=== PATIENT | female | born 1965 | race Caucasian/White ===

== ENCOUNTER → 2020-09-18 09:03 | Outpatient (BNVA) | payer OTHER, SELFPAY | PROVIDERS: PCP Hospitalist; Visit Provider Internal Medicine | DX: S61.212A Laceration without foreign body of right middle finger without damage to nail, initial encounter (principal); S61.214A Laceration without foreign body of right ring finger without damage to nail, initial encounter; W26.8XXA Contact with other sharp object(s), not elsewhere classified, initial encounter | CPT/HCPCS: 12001; 99203 ==

== ENCOUNTER → 2020-09-25 09:30 | Outpatient (BNVA) | payer OTHER, SELFPAY | PROVIDERS: PCP Hospitalist; Visit Provider Physician Assistant | DX: S61.212D Laceration without foreign body of right middle finger without damage to nail, subsequent encounter (principal); S61.214D Laceration without foreign body of right ring finger without damage to nail, subsequent encounter; X58.XXXD Exposure to other specified factors, subsequent encounter; Z48.02 Encounter for removal of sutures | CPT/HCPCS: 99212; 99213 ==

== ENCOUNTER 2025-09-26 14:32 | Outpatient (AMB) | payer OTHER, SELFPAY ==
--- NOTE | 2025-09-26 14:37 | A.PHYSOV ---
Intake Visit Reasons: Follow up after injection 08/08/25 Intake Note: Patient is a 60 year old male here for follow up of 08/08/25 right C3-C4,C4-C5 facet injection. Allergies No Known Allergies Allergy (Verified 09/26/25 14:38) HPI Comments Details: History of Present Illness The patient is a 60 year old individual presenting for follow-up of persistent neck pain. A recent injection provided no relief from the pain. The primary complaint is right-sided neck pain that radiates up into the head, causing headaches. The pain is exacerbated by lifting the head, head turning, and lifting objects. The patient has a history of tingling in the arm and wrist, with the last episode occurring one to two weeks ago. The patient manages the pain with ibuprofen and acetaminophen, primarily taken at night to improve sleep. The patient has previously completed physical therapy. Patient has a pain level today of 7/10. She would like to consider further treatment options including injection. Patient would also like MRI of the lumbar spine as she has severe lumbar radiculitis and has failed conservative treatment by completing physician directed home exercise plan for over 6 weeks. The patient has no history of low back surgery and is not claustrophobic. The patient reports having a metal implant but has undergone MRIs in the past without issue. Pain Description - Onset/Timing: Chronic, with fluctuations in intensity. - Quality/Character: Pain described as originating in the neck and going up into the head, causing headaches and a feeling of pressure. - Location/Radiation: Primarily right-sided neck pain that radiates into the head. - Severity: Pain rated as 4/10 at the time of the visit, but it can become severe enough to cause tears. - Exacerbating Factors: Pain worsens with activities such as lifting the head, turning the head, and lifting objects. - Associated Symptoms: Headache and a history of tingling in the arm and wrist. - Functional Interference: Pain interferes with sleep. Procedure: Right C3-4, C4-5 facet injection no relief 08/08/2025 [facility] Surgical History Hx of tonsillectomy H/O: knee surgery Social History Alcohol intake: current Alcohol intake frequency: holidays/special occasions only Patient Tobacco Use Status: Never used Tobacco Use of substances other than those prescribed or required for medical reasons: No Review of Systems Narrative Review of Systems - Musculoskeletal: Reports right-sided neck pain and tenderness upon touch. - Reports low back pain localized to the waist/hip area. - Neurological: Reports headaches and a sensation of pressure associated with neck pain. - Reports a history of tingling in the arm and wrist which occurred 1-2 weeks ago. - Denies current tingling in the arm. - Denies claustrophobia. - Psychiatric: Reports poor sleep quality due to pain. Physical Exam Exam Exam: Physical Exam Cervical Spine: Examination of the cervical spine, there is no visible swelling or deformity. She is tender to the right upper trapezius. She has full range of motion of her cervical spine with pain. Special Tests: Axial Compression test: Negative Spurlings test: Negative Lhermitte's sign is Negative Upper Extremities: Full range of motion bilateral upper extremities. Equal labor mediator strength bilaterally. Neuro: Sensation: Intact to upper extremities bilateral to light touch Strength C5 (Elbow Flexion): 5/5 on the left and 5/5 on the right. C6 (Elbow Ext): 5/5 on the left and 5/5 on the right. C7 (Elbow Ext): 5/5 on the left and 5/5 on the right. C8 (Finger Flex): 5/5 on the left and 5/5 on the right. T1 (Finger Abd/Add): 5/5 on the left and 5/5 on the right. DTR: C5 (Biceps): Left 2 Right 2 C6 (Brachioradialis): Left 2 Right 2 C7 (Triceps): Left 2 Right 2 Sanabria sign: Negative No pathologic clonus. No involuntary movement. Lumbar Spine: Examination of her lumbar spine, there is no visible swelling or deformity. She is tender to lower lumbar facets. She is otherwise nontender. Full range of motion of the lumbar spine. She does have an increase in pain with facet loading. Special Tests: Lhermittes sign was negative Heel Toe walk is normal Left straight leg raise: Negative Right straight leg raise: Negative Special tests Jonas test is negative Ganslen's test is negative SI Joint compression test negative Gabriel test negative Piriformis stretch is negative Lower Extremities: Full range of motion bilateral lower extremities. No calf pain or edema. Neuro: Sensation: Intact to lower extremities bilaterally Strength L2 (Psoas): 5/5 on the left and 5/5 on the right. L3 (Quads): 5/5 on the left and 5/5 on the right. L4 (Ant tibialis): 5/5 on the left and 5/5 on the right. L5 (EHL) 5/5 on the left and 5/5 on the right. S1 (Gastroc): 5/5 on the left and 5/5 on the right. DTR L4: (Patellar) Left 2 Right 2 S1: (Achilles) Left 2 Right 2 Babinski Downgoing No pathologic clonus. No involuntary movement. Assessment & Plan Assessment & Plan (1) Cervicalgia: Code(s): M54.2 - Cervicalgia Category: Medical (2) Cervical radiculopathy: Code(s): M54.12 - Radiculopathy, cervical region Category: Medical (3) Lumbar radiculopathy: Code(s): M54.16 - Radiculopathy, lumbar region Category: Medical Plan Pain Management - Affect: Pain has been severe enough to cause the patient to be in tears and it impacts sleep. - Analgesia: The patient reports taking ibuprofen and acetaminophen at night. - The patient declined stronger analgesics such as Percocet, Vicodin, or tramadol. - A muscle relaxer was discussed for nighttime use. - Adverse Effects: Not discussed. - Activities of Daily Living: Pain interferes with sleep and is worsened by head movements. - Aberrant Drug-Related Behaviors: None noted; the patient expressed a desire to limit ibuprofen use. Plan Patient was informed and verbally consented to the use of an ambient scribe for clinic note documentation during this visit. 1. Cervicalgia With Cervicogenic Headache The patient has persistent right-sided neck pain and associated headaches, with no relief from a previous facet joint injection aimed at treating arthritis. While MRI findings show right C5 lateral recess narrowing and possible right C7 nerve root compression, the clinical presentation is more consistent with axial neck pain rather than radiculopathy. The plan is to now target these potentially irritated nerve roots. Plan to proceed with a right C5 and C7 transforaminal epidural steroid injection. The procedure will be performed under sedation in a hospital setting. The patient will continue using [id number] ibuprofen and acetaminophen for pain management and has declined stronger medications. 2. Low Back Pain The patient brought up concerns for low back pain and requested further imaging. An MRI of the lumbar spine will be ordered and scheduled at [facility] for continuity of care. Patient has failed conservative treatment by completing 6 week physician directed home exercise plan without relief. The patient was advised against routine use of a back brace to prevent increased stiffness and weakness, recommending it only for short-term use during episodes of severe pain. The patient was counseled on using ice for pain/inflammation and heat for stiffness. Discussion Notes I discussed with the patient that the previous injection for arthritis was not effective. I reviewed the cervical MRI findings, noting the presence of right-sided C5 and C7 nerve abutment/compression, and explained that while this typically causes arm pain, we would now target these nerves as the next step. The plan is to schedule a right C5 and C7 transforaminal injection to be performed under sedation at the hospital. We discussed pain medication options, and the patient expressed a preference to continue with [id number] ibuprofen and acetaminophen, declining a prescription for stronger pain relievers, gabapentin, or a muscle relaxer at this time. I also agreed to order an MRI of the patient's low back for further evaluation, which will be done at a [facility] facility for integrated EMR access. We reviewed home care, including the rationale for using ice for inflammation versus heat for stiffness and the appropriate, limited use of a back brace. Patient Instructions - Continue taking ibuprofen and acetaminophen as needed for pain. - Our office will be in touch to schedule a right-sided C5 and C7 neck injection, which will be performed at the hospital with Dr. Vaca. - An order has been placed for an MRI of your low back to be done at [facility]. - For pain and swelling, use ice. - For muscle stiffness, you may use heat, but be aware it can sometimes increase pain afterward. - Avoid using a back brace continuously. - You should only use it for a few days at a time if you are having severe pain. Orders: Orders MR lumbar spine wo con Today M51.16 - Intervertebral disc disorders with radiculopathy, lumbar region Referrals Physiatry Procedure Notification M54.12 - Radiculopathy, cervical region Coding Level of Care Code Tele Est Pt Level 4 (08381) Diagnoses Cervicalgia M54.2 Cervical radiculopathy M54.12 Lumbar radiculopathy M54.16
--- OUTSIDE RECORDS SUMMARY | 2025-09-26 16:28 | XMS_ITS | Clinical Summary ---
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 Active acetaminophen (TYLENOL) 325 mg tablet Take by mouth every 6 (six) hours if needed for mild pain. Active Active Problems Problem Noted Date Diagnosed Date IBS (irritable bowel syndrome) 03/09/2024 Encounters Date Type Department Care Team Description 08/08/2025 2:02 PM EDT Anesthesia Event [facility] Pain Management [address] [place] [phone] Chad Moreno MD 08/08/2025 1:52 PM EDT - 08/08/2025 11:59 PM EDT Hospital Encounter [facility] Xray [address] [place] [phone] Pain Discharge Disposition: Home or Self Care 08/08/2025 12:59 PM EDT - 08/08/2025 11:59 PM EDT Hospital Encounter [facility] Pain Management [address] [place] [phone] Rich Lewis DO Saliga, Jesse L, MD Swanson, Mona, CRNA Cervicalgia Discharge Disposition: Home or Self Care from Last 3 Months Immunizations Immunization Administration Dates Next Due Influenza Quadravalent, MDCK , 0.5ml, preservative free (Flucelvax) 6mo and older 09/24/2021 Influenza trivalent, 0.5mL, preservative free (Fluarix; FluLaval; Fluzone) ages 6mo and older (Afluria) 3 years and older 07/20/2022,08/10/2020 Moderna Covid-19 Bivalent, O riginal + Ba.1 (Non-US Tradename Spikevax Bivalent) 07/20/2022 Tdap Tetanus diptheria acell ular pertussis (Boostrix; Adacel) 7yo and older 09/18/2020 Surgical History Surgery Date Site/Laterality Comments FOOT SURGERY Right PROCEDURE: HISTORICAL FOOT SURGERY; COMMENT: bunionectomy KNEE SURGERY Right PROCEDURE: HISTORICAL KNEE SURGERY; COMMENT: meniscus repair LEG SURGERY PROCEDURE: HISTORICAL LEG SURGERY; COMMENT: laser vein ablation Medical History Medical History Date Comments Chronic pain disorder Family History Medical History Relation Name Comments Diabetes Father Diabetes Mother Diabetes Sister 1 Diabetes Sister 2 Relation Name Status Comments Father Mother Sister 1 Sister 2 Alive Social History Tobacco Use Types Packs/Day Years Used Date Smoking Tobacco: Former Cigarettes 0.5 21.9 S tarted: 2003 Smokeless Tobacco: Never Tobacco Cessation:Counseling Given: Not Answered Alcohol Use Standard Drinks/Week Comments Yes 0 (1 standard drink = 0.6 oz pur e alcohol) OCCASIONALLY Housing Instability Answer Date Recorde d Are you worried that in the next 2 months you may not have stable housing? No 01/09/2025 Food Access & Nutrition Answer Date Rec orded Do you have access to a vari ety of food including fruits and vegetables? Yes 01/09/2025 Access to Healthcare Answer Date Record ed Within the last 3 months, ho w many times did you visit the emergency department for your medical care? 0 01/09/2025 Health Literacy Answer Date Recorded How often do you need to hav e someone help you when you read instructions, pamphlets, or other written material from your doctor or pharmacy? Never 01/09/2025 Caregiver: How often do you need to have someone help you when you read instructions, pamphlets, or other written material from your doctor or pharmacy? Not on file 01/09/2025 Financial Risk Answer Date Recorded How hard is it for you to pa y for the very basics like food, housing, medical care, and air conditioning / heating? Not very hard 01/09/2025 Transportation Answer Date Recorded Has the lack of transportati on kept you from meetings, work, or from getting things needed for daily living? No Has the lack of transportati on kept you from medical appointments or from getting medications? No 01/09/2025 Social Isolation Answer Date Recorded How often do you feel lonely or isolated from th ose around you? Never 01/09/2025 Food Risk Answer Date Recorded Within the past 12 months we worried whether our food would run out before we got money to buy more. Never true 01/09/2025 Within the past 12 months th e food we bought just didn't last and we didn't have money to get more. Never true 01/09/2025 Dependent Care Answer Date Recorded Do you need help finding or paying for care for your loved ones. For example, child guidance counselor or elderly care for an older adult? No 01/09/2025 Living Situation Answer Date Recorded What is your living situation? Unrecognized valu e 01/09/2025 Interpersonal Safety Answer Date Record ed Physical Abuse Unrecognized value 08/08/2025 Verbal Abuse Unrecognized value 08/08/2025 Comments No Sex and Gender Information Value Date Recorded Sex Assigned at Not on file Legal Sex Female 11:55 PM EST Gender Identity Not on file Sexual Orientation Not on file Obstetrics History Last Filed Vital Signs Vital Sign Reading Time Taken Comments Blood Pressure 117/76 08/08/2025 2:42 PM EDT Pulse 76 08/08/2025 2:42 PM EDT Temperature 36.6 C (97.9 F) 08/08/2025 2:21 PM EDT Respiratory Rate 16 08/08/2025 2:42 PM EDT Oxygen Saturation 100% 08/08/2025 2:42 PM EDT Inhaled Oxygen Concentration - - Weight 68.9 kg (152 lb) 08/03/2025 8:00 AM EDT Height 162.6 cm (5' 4 ) 08/03/2025 8:00 AM EDT Body Mass Index 26.09 08/03/2025 8:00 AM EDT Plan of Treatment Health Maintenance Due Date Last Done Comments Breast Cancer Screening 1967 Colorectal Cancer Screening: Colonoscopy 1967 Hepatitis B Vaccines (1 of 3 - 19+ 3-dose series) 1986 Cervical Cancer Screening: Pap Smear 1988 Pneumococcal Vaccine: 50+ Years (1 of 1 - PCV) 2017 Zoster Vaccines (1 of 2) 2017 HIV Screening 09/28/2022 Hepatitis C Screening 09/28/2022 COVID-19 Vaccine ( - season) 2025 12/21/2023, 11/20/2023, 07/20/2022, Additional history exists Influenza Vaccine (#1) 2025 , 07/20/2022, 09/24/2021, Additional history exists Social Influencers of Health Screening 01/09/2026 01/09/2025 Cholesterol Screening (Lipid Panel) 06/28/2030 06/28/2025, 03/09/2024, 03/09/2024 DTaP,Tdap,and Td Vaccines (3 - Td or Tdap) 09/18/2030 09/18/2020, 04/25/2006 RSV Immunization Adult Patients (1 - 1-dose 75+ series) 2042 Depression Screening Completed 01/09/2025 HIB Vaccines Aged Out No longer eligi ble based on patient's age to complete this topic HPV Vaccines Aged Out No longer eligi ble based on patient's age to complete this topic Hepatitis A Vaccines Aged Out No long er eligible based on patient's age to complete this topic IPV Vaccines Aged Out No longer eligi ble based on patient's age to complete this topic MMR Vaccines Aged Out No longer eligi ble based on patient's age to complete this topic Meningococcal ACWY Vaccine Aged Out N o longer eligible based on patient's age to complete this topic Meningococcal B Vaccine Aged Out No l onger eligible based on patient's age to complete this topic RSV Immunization Patients Under 20 months Aged Out No longer eligible based on patient's age to complete this topic Varicella Vaccines Aged Out No longer eligible based on patient's age to complete this topic Procedures Procedure Name Priority Date/Time Associated Diagnosis Comments CBC WITH AUTO DIFFERENTIAL Routine 06/28/2025 7:42 AM EDT Routine general medical examination at a health care facility Screening for lipoid disorders Screening for diabetes mellitus Avitaminosis D Screening for thyroid disorder Vitamin B12 deficiency anemia URINALYSIS WITH REFLEX MICROSCOPIC Routine 06/28/2025 7:42 AM EDT Routine general medical examination at a health care facility Screening for lipoid disorders Screening for diabetes mellitus Avitaminosis D Screening for thyroid disorder Vitamin B12 deficiency anemia CBC AND DIFFERENTIAL Routine 06/28/2025 7:42 AM EDT Routine general medical examination at a health care facility Screening for lipoid disorders Screening for diabetes mellitus Avitaminosis D Screening for thyroid disorder Vitamin B12 deficiency anemia COMPREHENSIVE METABOLIC PANEL Routine 06/28/2025 7:42 AM EDT Routine general medical examination at a health care facility Screening for lipoid disorders Screening for diabetes mellitus Avitaminosis D Screening for thyroid disorder Vitamin B12 deficiency anemia URINALYSIS WITH REFLEX MICROSCOPIC Routine 06/28/2025 7:42 AM EDT Routine general medical examination at a health care facility Screening for lipoid disorders Screening for diabetes mellitus Avitaminosis D Screening for thyroid disorder Vitamin B12 deficiency anemia LIPID PANEL WITH REFLEX TO DIRECT LDL Routine 06/28/2025 7:42 AM EDT Routine general medical examination at a health care facility Screening for lipoid disorders Screening for diabetes mellitus Avitaminosis D Screening for thyroid disorder Vitamin B12 deficiency anemia HEMOGLOBIN A1C Routine 06/28/2025 7:42 AM EDT Routine general medical examination at a health care facility Screening for lipoid disorders Screening for diabetes mellitus Avitaminosis D Screening for thyroid disorder Vitamin B12 deficiency anemia VITAMIN D 25 HYDROXY Routine 06/28/2025 7:42 AM EDT Routine general medical examination at a health care facility Screening for lipoid disorders Screening for diabetes mellitus Avitaminosis D Screening for thyroid disorder Vitamin B12 deficiency anemia THYROID STIMULATING HORMONE Routine 06/28/2025 7:42 AM EDT Routine general medical examination at a health care facility Screening for lipoid disorders Screening for diabetes mellitus Avitaminosis D Screening for thyroid disorder Vitamin B12 deficiency anemia THYROXINE TOTAL Routine 06/28/2025 7:42 AM EDT Routine general medical examination at a [facility] Screening for lipoid disorders Screening for diabetes mellitus Avitaminosis D Screening for thyroid disorder Vitamin B12 deficiency anemia TRIIODOTHYRONINE FREE Routine 06/28/2025 7:42 AM EDT Routine general medical examination at a [facility] Screening for lipoid disorders Screening for diabetes mellitus Avitaminosis D Screening for thyroid disorder Vitamin B12 deficiency anemia VITAMIN B12 Routine 06/28/2025 7:42 AM EDT Routine general medical examination at a [facility] Screening for lipoid disorders Screening for diabetes mellitus Avitaminosis D Screening for thyroid disorder Vitamin B12 deficiency anemia from Last 3 Months Results * (ABNORMAL) Urinalysis with reflex microscopic (06/28/2025 7:42 AM EDT) Specific [place] Urine 1.013 1.003 - 1.030 LAB URINALYSIS - AUTOMATED METHOD 06/28/2025 12:52 PM [facility] pH, Urine 7.0 5.0 - 8.0 pH LAB URINALYSIS - AUTOMATED METHOD 06/28/2025 12:52 PM [facility] Leukocytes, Urine Large(A) Negative LAB URINALYSIS - AUTOMATED METHOD 06/28/2025 12:52 PM [facility] Nitrite, Urine Negative Negative LAB URINALYSIS - AUTOMATED METHOD 06/28/2025 12:52 PM [facility] Protein, Urine Negative <=Trace mg/dL LAB URINALYSIS - AUTOMATED METHOD 06/28/2025 12:52 PM [facility] Glucose, Urine Negative Negative mg/dL LAB URINALYSIS - AUTOMATED METHOD 06/28/2025 12:52 PM [facility] Ketones, Urine Negative Negative mg/dL LAB URINALYSIS - AUTOMATED METHOD 06/28/2025 12:[address] [facility] Urobilinogen , Urine 1.0 0.2 - 1.0 mg/dL LAB URINALYSIS - AUTOMATED METHOD 06/28/2025 12:52 PM [facility] Bilirubin, Urine Negative Negative LAB URINALYSIS - AUTOMATED METHOD 06/28[facility]2025 12:52 [facility] Blood, Urine Negative Negative LAB URINALYSIS - AUTOMATED METHOD 06/28/2025 12:52 PM [facility] RBC, Urine 1.8 0 - 4 /HPF LAB URINALYSIS - AUTOMATED METHOD 06/28/2025 12:52 PM [facility] WBC, Urine 2.0 0 - 4 /HPF LAB URINALYSIS - AUTOMATED METHOD 06/28/2025 12:52 PM [facility] Squamous Epithelial, Urine 20 0 - 60 /LPF LAB URINALYSIS - AUTOMATED METHOD 06/28/2025 12:52 PM [facility] Non-Squamous Epithelial, Urine 5-10 TRANSITIONAL EPI /LPF LAB URINALYSIS - AUTOMATED METHOD 06/28/2025 12:52 PM [facility] Bacteria, Urine Negative Negative /HPF LAB URINALYSIS - AUTOMATED METHOD 06/28/2025 12:52 PM [facility] Hyaline Casts, Urine 0.0 0 - 3 /LPF LAB URINALYSIS - AUTOMATED METHOD 06/28/2025 12:52 PM [facility] Urine Urine specimen obtained by clean catch procedure / Unknown Non-blood Collection / Unknown 06/28/2025 7:42 AM EDT 06/28/2025 10:23 AM EDT us Jossie ROMERO LAB URINE ORDERABLES Final R esult [facility] [address] [place] [address], [place] [phone] * Lipid panel with reflex to direct LDL (06/28/2025 7:42 AM EDT) Cholesterol 179 0 - 200 mg/dL LAB CHEMISTRY METHOD 06/28/2025 12:[address] [facility] Triglycerides 73 0 - 150 mg/dL LAB CHEMISTRY METHOD 06/28/2025 12:[address] [facility] HDL 72 >=40 mg/dL LAB CHEMISTRY METHOD 06/28/2025 12:[address] [facility] LDL Calculated 92 0 - 100 mg/dL LAB CHEMISTRY METHOD 06/28/2025 12:[address] [facility] Comment:Estimated LDL Calcul ated using equation: Total cholesterol - HDL cholesterol - (Triglycerides/5) VLDL Cholesterol Arvind 14.6 mg/dL LAB CHEMISTRY METHOD 06/28/2025 12:[address] [facility] Non HDL Chol. (LDL+VLDL) 107 <145 mg/dL LAB CHEMISTRY METHOD 06/28/2025 12:[address] [facility] Chol/HDL Ratio 2.5 0.0 - 4.4 LAB CHEMISTRY METHOD 06/28/2025 12:[address] [facility] Blood Venous blood specimen / Unknown Venipuncture / Unknown 06/28/2025 7:42 AM EDT 06/28/2025 10:20 AM EDT us Jossie ROMERO LAB BLOOD ORDERABLES Final R esult [facility] [address] [place] [address], [place] [phone] * (ABNORMAL) CBC auto differential (06/28/2025 7:42 AM EDT) WBC 3.9(L) 4.8 - 10.8 K/mcL LAB HEMETOLOGY METHOD 06/28/2025 10:49 AM [facility] RBC 4.60 3.80 - 4.80 M/mcL LAB HEMETOLOGY METHOD 06/28/2025 10:49 AM [facility] Hemoglobin 12.9 11.5 - 16.0 g/dL LAB HEMETOLOGY METHOD 06/28/2025 10:49 AM [facility] Hematocrit 39.8 35.0 - 47.0 % LAB HEMETOLOGY METHOD 06/28/2025 10:49 AM [facility] MCV 87.1 79.0 - 98.0 FL LAB HEMETOLOGY METHOD 06/28/2025 10:49 AM [facility] MCH 28.2 27.0 - 32.0 pcg LAB HEMETOLOGY METHOD 06/28/2025 10:49 AM [facility] MCHC 32.4 32.0 - 37.0 g/dL LAB HEMETOLOGY METHOD 06/28/2025 10:49 AM [facility] RDW 12.5 11.0 - 15.0 % LAB HEMETOLOGY METHOD 06/28/2025 10:49 AM [facility] Platelets 213 130 - 400 K/mcL LAB HEMETOLOGY METHOD 06/28/2025 10:49 AM [facility] MPV 11.1(H) 7.0 - 11.0 FL LAB HEMETOLOGY METHOD 06/28/2025 10:49 AM [facility] NRBC 0.0 <1.0 % LAB HEMETOLOGY METHOD 06/28/2025 10:49 AM [facility] NRBC Absolute 0.00 <0.10 K/mcL LAB HEMETOLOGY METHOD 06/28/2025 10:49 AM [facility] Neutrophils Relative 51.7 % LAB HEMETOLOGY METHOD 06/28/2025 10:49 AM [facility] Lymphocytes Relative 36.9 % LAB HEMETOLOGY METHOD 06/28/2025 10:49 AM [facility] Monocytes Relative 7.0 % LAB HEMETOLOGY METHOD 06/28/2025 10:49 AM [facility] Eosinophils Relative 3.1 % LAB HEMETOLOGY METHOD 06/28/2025 10:49 AM [facility] Basophils Relative 1.0 % LAB HEMETOLOGY METHOD 06/28/2025 10:49 AM [facility] Immature Granulocytes Relative 0.3 % LAB HEMETOLOGY METHOD 06/28/2025 10:49 AM [facility] Neutrophils Absolute 1.99 1.50 - 7.00 K/mcL LAB HEMETOLOGY METHOD 06/28/2025 10:49 AM [facility] Lymphocytes Absolute 1.42 1.00 - 5.00 K/mcL LAB HEMETOLOGY METHOD 06/28/2025 10:49 AM [facility] Monocytes Absolute 0.27 0.20 - 1.00 K/mcL LAB HEMETOLOGY METHOD 06/28/2025 10:49 AM [facility] Eosinophils Absolute 0.12 0.00 - 0.50 K/mcL LAB HEMETOLOGY METHOD 06/28/2025 10:49 AM [facility] Basophils Absolute 0.04 0.00 - 0.20 K/mcL LAB HEMETOLOGY METHOD 06/28/2025 10:49 AM [facility] Immature Granulocytes Absolute 0.01 0.00 - 0.03 K/mcL LAB HEMETOLOGY METHOD 06/28/2025 10:49 AM [facility] Blood Venous blood specimen / Unknown Venipuncture / Unknown 06/28/2025 7:42 AM EDT 06/28/2025 10:22 AM EDT Jossie Rosas PA LAB BLOOD ORDERABLES Final R esult Performing Organization Address City/[facility]/ZIP Co de Phone Number [facility] [address] [place] [address], [place] [phone] * (ABNORMAL) Vitamin D 25 hydroxy (06/28/2025 7:42 AM EDT) Pathologist [facility] Vit D, 25-Hydroxy 26.4(L) 30.0 - 80.0 ng/mL LAB CHEMISTRY METHOD 06/28/2025 12:[address] [facility] Blood Venous blood specimen / Unknown Venipuncture / Unknown 06/28/2025 7:42 AM EDT 06/28/2025 10:20 AM EDT Jossie Odome PA LAB BLOOD ORDERABLES Final R esult Performing Organization Address [facility] Co de Phone Number [facility] [address] [place] [address], [place] [phone] * Triiodothyronine free (06/28/2025 7:42 AM EDT) [facility] T3, Free 331 230 - 420 pcg/dL LAB CHEMISTRY METHOD 06/28/2025 12:[address] [facility] Blood Venous blood specimen / Unknown Venipuncture / Unknown 06/28/2025 7:42 AM EDT 06/28/2025 10:20 AM EDT Jossie Odome PA LAB BLOOD ORDERABLES Final R esult Performing Organization Address City/[facility]/ZIP Co de Phone Number [facility] [address] [place] [address], [place] [phone] * Thyroid stimulating hormone (06/28/2025 7:42 AM EDT) [facility] TSH 0.93 0.40 - 4.00 mcIU/mL LAB CHEMISTRY METHOD 06/28/2025 12:[address] [facility] Blood Venous blood specimen / Unknown Venipuncture / Unknown 06/28/2025 7:42 AM EDT 06/28/2025 10:20 AM EDT us Jossie Odome PA LAB BLOOD ORDERABLES Final R esult Performing Organization Address City/[facility]/ZIP Co de Phone Number [facility] [address] [place] [address], [place] [phone] * Thyroxine total (06/28/2025 7:42 AM EDT) [facility] T4, Total 6.5 4.5 - 10.9 mcg/dL LAB CHEMISTRY METHOD 06/28/2025 1:[address] [facility] Blood Venous blood specimen / Unknown Venipuncture / Unknown 06/28/2025 7:42 AM EDT 06/28/2025 10:20 AM EDT us Jossie Odome PA LAB BLOOD ORDERABLES Final R esult Performing Organization Address City/[facility] Co de Phone Number [facility] [address] [place] [address], [place] [phone] * Hemoglobin A1c (06/28/2025 7:42 AM EDT) [facility] Hemoglobin A1C 5.6 <6.5 % LAB CHEMISTRY METHOD 06/28/2025 1:[address] [facility] Mean Bld Glu Estim. 114 mg/dL LAB CHEMISTRY METHOD 06/28/2025 1:[address] [facility] Blood Venous blood specimen / Unknown Venipuncture / Unknown 06/28/2025 7:42 AM EDT 06/28/2025 10:22 AM EDT us Jossie ROMERO LAB BLOOD ORDERABLES Final R esult Performing Organization Address City/[facility]/ZIP Co de Phone Number [facility] [address] [place] [address], [place] [phone] * Vitamin B12 (06/28/2025 7:42 AM EDT) [facility] Vitamin B-12 261 250 - 900 pcg/mL LAB CHEMISTRY METHOD 06/28/2025 12:[address] [facility] Blood Venous blood specimen / Unknown Venipuncture / Unknown 06/28/2025 7:42 AM EDT 06/28/2025 10:20 AM EDT Jossie ROMERO LAB BLOOD ORDERABLES Final R esult Performing Organization Address [facility]/ZIP Co de Phone Number [facility] [address] [place] [address], [place] [phone] * Comprehensive metabolic panel (06/28/2025 7:42 AM EDT) [facility] Sodium 141 133 - 145 mmol/L LAB CHEMISTRY METHOD 06/28/2025 12:10 PM [facility] Potassium 4.1 3.5 - 5.5 mmol/L LAB CHEMISTRY METHOD 06/28/2025 12:10 PM [facility] Chloride 106 96 - 110 mmol/L LAB CHEMISTRY METHOD 06/28/2025 12:10 PM [facility] CO2 29 21 - 32 mmol/L LAB CHEMISTRY METHOD 06/28/2025 12:10 PM [facility] Anion Gap 6 3 - 11 LAB CHEMISTRY METHOD 06/28/2025 12:10 PM [facility] Glucose 90 70 - 100 mg/dL LAB CHEMISTRY METHOD 06/28/2025 12:10 PM [facility] BUN 12 5 - 25 mg/dL LAB CHEMISTRY METHOD 06/28/2025 12:10 PM [facility] Creatinine 0.75 0.50 - 1.10 mg/dL LAB CHEMISTRY METHOD 06/28/2025 12:10 PM [facility] eGFR 92 >=60 mL/min/1. 73m2 LAB CHEMISTRY METHOD 06/28/2025 12:10 PM [facility] Comment:Calculation based on the Chronic Kidney Disease Epidemiology Collaboration (CKD-EPI) equation refit without adjustment for race. BUN/Creatinine Ratio 16.0 LAB CHEMISTRY METHOD 06/28/2025 12:10 PM [facility] Calcium 8.9 8.5 - 10.5 mg/dL LAB CHEMISTRY METHOD 06/28/2025 12:10 PM [facility] AST (SGOT) 18 10 - 42 unit/L LAB CHEMISTRY METHOD 06/28/2025 12:10 PM [facility] ALT (SGPT) 24 10 - 60 unit/L LAB CHEMISTRY METHOD 06/28/2025 12:10 PM [facility] Alkaline Phosphatase 67 42 - 121 unit/L LAB CHEMISTRY METHOD 06/28/2025 12:10 PM [facility] Total Protein 6.3 6.0 - 8.0 g/dL LAB CHEMISTRY METHOD 06/28/2025 12:10 PM [facility] Albumin 4.0 3.2 - 5.0 g/dL LAB CHEMISTRY METHOD 06/28/2025 12:10 PM [facility] Total Bilirubin 0.7 0.0 - 1.4 mg/dL LAB CHEMISTRY METHOD 06/28/2025 12:10 PM [facility] Blood Venous blood specimen / Unknown Venipuncture / Unknown 06/28/2025 7:42 AM EDT 06/28/2025 10:20 AM EDT Jossie ROMERO LAB BLOOD ORDERABLES Final R esult [facility] [place] [facility] [address] [place] [address], from Last 3 Months Insurance 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
== END 2025-09-26 15:01 | disposition home or self-care (01) ==
LOC: HO.HPHYS 14:32
PROVIDERS: PCP Hospitalist; Visit Provider Physician Assistant
DX: M54.2 Cervicalgia (principal); M54.12 Radiculopathy, cervical region; M54.16 Radiculopathy, lumbar region
CPT/HCPCS: 99214